=== PATIENT | female | born 1985 | race Caucasian/White ===

== ENCOUNTER 2019-02-25 09:11 | Emergency (ER) | payer OTHER ==
[2019-02-25 09:26] VITALS: BP 123/76
--- NOTE | 2019-02-25 09:43 | ED ---
GI/ HPI - HPI Summary HPI Summary: 33 yr old female with the complaint of NVD, headache, and right ear pain. Onset of illness 48 hours ago. 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 She had onset of diarrhea first, and then vomiting. The patient had onset of mild headache yesterday. Her right ear hurt on Thursday, but not as much today. She denies fever. - History of Current Complaint Chief Complaint: UCGeneralIllness Time Seen by Provider: 02/25/19 09:31 Stated Complaint: [place],VOMITING,DIARRHEA, RT EAR PAIN Hx Last Menstrual Period: s/p Uterine Ablation Pain Intensity: 7 - Allergy/Home Medications Allergies/Adverse Reactions: Allergies Allergy/AdvReac Type Severity Reaction Status Date / Time No Known Allergies Allergy Verified 02/25/19 09:23 Home Medications: Home Medications NK [No Home Medications Reported] 02/25/19 [History Confirmed 02/25/19] PMH/Surg Hx/FS Hx/Imm Hx - Surgical History Surgery Procedure, Year, and Place: Uterine Ablation and Ovarian Cysts, 2018, [place]; [facility], 2008 2003, Infectious Disease History: No Infectious Disease History: Reports: Hx Clostridium Difficile Denies: Traveled Outside the [place] in Last 30 Days - Family History Known Family History: Positive: Hypertension - Social History Occupation: Employed Full-time Alcohol Use: Rare Substance Use Type: Reports: None Smoking Status (MU): Former Smoker Type: Cigarettes Amount Used/How Often: 5 cigs daily Review of Systems Constitutional: Negative Positive: Ear Ache Positive: Vomiting, Diarrhea, Nausea Positive: Headache All Other Systems Reviewed And Are Negative: Yes Physical Exam Triage Information Reviewed: Yes Vital Signs On Initial Exam: Initial Vitals Temp Pulse Resp BP Pulse Ox 97.2 F 72 18 123/76 100 02/25/19 09:21 02/25/19 09:21 02/25/19 09:21 02/25/19 09:21 02/25/19 09:21 Vital Signs Reviewed: Yes Appearance: Positive: Well-Appearing, No Pain Distress Skin: Positive: Warm, Skin Color Reflects Adequate Perfusion Head/Face: Positive: Normal Head/Face Inspection Eyes: Positive: EOMI ENT: Positive: Pharynx normal Neck: Positive: Nontender, No Lymphadenopathy. Negative: Nuchal Rigidity Respiratory/Lung Sounds: Positive: Clear to Auscultation, Breath Sounds Present Cardiovascular: Positive: RRR. Negative: Murmur Abdomen Description: Positive: Nontender. Negative: Distended Musculoskeletal: Positive: Strength/ROM Intact Neurological: Positive: Sensory/Motor Intact, Alert, Oriented to Person Place, Time, CN Intact II-III, Normal Gait, Speech Normal Psychiatric: Positive: Normal Diagnostics - Vital Signs Vital Signs Temp Pulse Resp BP Pulse Ox 02/25/19 09:21 97.2 F 72 18 123/76 100 - Laboratory Lab Statement: Any lab studies that have been ordered have been reviewed, and results considered in the medical decision making process. GIGU Course/Dx - Course Course Of Treatment: 33 yr old with gastroenteritis. DC home in good condition. Out of work today. - Diagnoses Provider Diagnoses: Gastroenteritis Discharge - Sign-Out/Discharge Documenting (check all that apply): Patient Departure All imaging exams completed and their final reports reviewed: No Studies - Discharge Plan Condition: Good Disposition: HOME Patient Education Materials: Gastroenteritis (ED), Acute Headache (ED) Forms: *Work Release Referrals: No Primary Care Phys,NOPCP [Primary Care Provider] - [facility] [place] [facility]ERR[facility] [Outside] - Billing Disposition and Condition Condition: GOOD Disposition: Home
== END 2019-02-25 09:44 | disposition home or self-care (01) ==
LOC: UCCORT 09:11
DX: K52.9 Noninfective gastroenteritis and colitis, unspecified (principal); Z87.891 Personal history of nicotine dependence
CPT/HCPCS: 99211; G0463

== ENCOUNTER 2019-08-22 12:58 | Emergency (ER) | payer OTHER ==
[2019-08-22 13:38] VITALS: BP 99/77
--- NOTE | 2019-08-22 14:00 | UC ---
Throat Pain/Nasal [place] HPI - HPI Summary HPI Summary: Pt states she has been coughing for three weeks and then starting yesterday with fever, chills, and headache. - History of Current Complaint Chief Complaint: UCGeneralIllness Stated Complaint: COUGH/FEVER/CHILLS Time Seen by Provider: 08/22/19 14:00 Hx Obtained From: Patient Hx Last Menstrual Period: Tubal ligation/ablation ?: No Onset/Duration: Sudden Onset, Lasting Days Severity: Moderate Pain Intensity: 5 Associated Signs & Symptoms: Positive: Dysphagia, Sinus Discomfort, Nasal Discharge, Fever - Allergies/Home Medications Allergies/Adverse Reactions: Allergies Allergy/AdvReac Type Severity Reaction Status Date / Time No Known Allergies Allergy Verified 08/22/19 13:38 PMH/Surg Hx/FS Hx/Imm Hx Previously Healthy: Yes - Surgical History Surgical History: Yes Surgery Procedure, Year, and Place: Uterine Ablation and Ovarian Cysts, 2017, [place]; [facility], 2008 2003, [place] - Family History Known Family History: Positive: Hypertension - Social History Alcohol Use: Rare Substance Use Type: None Smoking Status (MU): Former Smoker Type: Cigarettes Amount Used/How Often: 5 cigs daily When Did the Patient Quit Smoking/Using Tobacco: 2016 Review of Systems All Other Systems Reviewed And Are Negative: Yes Constitutional: Positive: Fever ENT: Positive: Sore Throat, Sinus Congestion, Sinus Pain/Tenderness Respiratory: Positive: Cough Musculoskeletal: Positive: Myalgia Neurological: Positive: Headache Is Patient Immunocompromised?: No Physical Exam Triage Information Reviewed: Yes Appearance: Well-Nourished, Ill-Appearing, Pain Distress Vital Signs: Initial Vital Signs Temp 98.7 F 08/22/19 13:34 Pulse 75 08/22/19 13:34 Resp 16 08/22/19 13:34 BP 99/77 08/22/19 13:34 Pulse Ox 99 08/22/19 13:34 Vital Signs Reviewed: Yes Eye Exam: Normal ENT: Positive: Pharyngeal erythema, TM bulging Neck: Positive: Enlarged Nodes @ - bilateral cervical Respiratory: Positive: Chest non-tender, Lungs clear, Normal breath sounds Cardiovascular Exam: Normal Abdominal Exam: Normal Skin Exam: Normal Throat Pain/Nasal Course/Dx - Course Course Of Treatment: hx obtained, exam performed ,meds reviewed, rapid flu obtained - Differential Dx/Diagnosis Differential Diagnosis/HQI/PQRI: Influenza, Pharyngitis, Sinusitis, URI Provider Diagnosis: Sinusitis Discharge ED - Sign-Out/Discharge Documenting (check all that apply): Patient Departure All imaging exams completed and their final reports reviewed: No Studies - Discharge Plan Condition: Stable Disposition: HOME Prescriptions: Azithromyxin ANDRIA (NF) [Z-Andria (Zithromax) 250 mg tabs #6] 2 tab PO .TODAY, THEN 1 DAILY #6 tab Patient Education Materials: Sinusitis (ED) Forms: *Work Release Referrals: No Primary Care Phys,NOPCP [Primary Care Provider] - Additional Instructions: 1. your flu test was negative 2. Take the medication for your sinusitis 3. Increase fluids and get rest 4. Nasal saline for nasal passages 5. Ibuprofen or tylneol as needed for pain and fever - Billing Disposition and Condition Condition: STABLE Disposition: Home - Attestation Statements Provider Attestation: This patient was not seen by me. I was available for consult. Chart reviewed. DEBORA
[2019-08-22 14:23] LABS: Influenza A Molecular NEGATIVE (Negative); Influenza B Molecular NEGATIVE (Negative)
== END 2019-08-22 14:38 | disposition home or self-care (01) ==
LOC: UCCORT 12:58
DX: J32.9 Chronic sinusitis, unspecified (principal); J02.9 Acute pharyngitis, unspecified; M79.10 Myalgia, unspecified site; Z87.891 Personal history of nicotine dependence
CPT/HCPCS: 99212; G0463